=== PATIENT | male | born 1985 | race African-American/Black ===

== ENCOUNTER 2019-10-29 17:53 | Emergency (ER) | payer OTHER ==
[~2019-10-29] VITALS: Ht 177.8 cm; Wt 89.8 kg
[2019-10-29 18:02] VITALS: BP 162/82
--- NOTE | 2019-10-29 18:07 | NUR ---
BIB [place] [employer] FOR PRE BOOK. PD REPORTS THAT PT HAS INCREASED HR AND TEMP. HR 104, TEMP 99.1. PT IS NOT ANSWERING QUESTIONS, PD BELIVES IS UNDER THE INFLUENCE OF METH.
--- NOTE | 2019-10-29 18:45 | NUR ---
Patient discharged with v/s stable. Written and verbal after care instructions given and explained. Patient alert, oriented and verbalized understanding of instructions. with in custody. All questions addressed prior to discharge. ID band removed. Patient advised to follow up with PMD.NO Rx given. Patient educated on indication of medication including possible reaction and side effects. Opportunity to ask questions provided and answered.
[2019-10-29 19:23] VITALS: BP 122/75
== END 2019-10-29 18:45 ==
LOC: MED 17:53
DX: Z02.89 Encounter for other administrative examinations (principal)
CPT/HCPCS: 99283